=== PATIENT | male | born 1995 | race Caucasian/White ===

== ENCOUNTER 2020-05-30 16:56 | Outpatient (CLI) | payer OTHER | END 2020-05-30 16:57 | disposition critical access hospital (66) | LOC: EMS 16:56 | PROVIDERS: ATTEND Surgery | DX: S68.0 Traumatic metacarpophalangeal amputation of thumb (principal); W45.8XXA Other foreign body or object entering through skin, initial encounter | CPT/HCPCS: A0425; A0429 ==

== ENCOUNTER 2020-05-30 18:15 | Emergency (ER) | payer MEDICAID, OTHER ==
--- NOTE | 2020-05-30 18:22 | ED Physician Documentation ---
PD HPI UPPER EXT INJURY - Stated complaint Stated Complaint: CUT OF TIP OF THUMB - History obtained from History obtained from: Patient (Left-handed gentleman with unknown tetanus status cut the tip off his right left thumb at work just prior to arrival with a knife. He is a cook.) Review of Systems Constitutional: reports: Reviewed and negative Nose: reports: Reviewed and negative Throat: reports: Reviewed and negative Cardiac: reports: Reviewed and negative PD PAST MEDICAL HISTORY - Past Surgical History Past Surgical History: No - Present Medications Home Medications: Ambulatory Orders Medication Instructions Recorded Confirmed Penicillin Vk 500 mg PO Q6H 5 Days tablet 01/21/15 Bacitracin Zinc Oint 1 applic TOP BID #1 tube 05/30/20 - Allergies Allergies/Adverse Reactions: Allergies Allergy/AdvReac Type Severity Reaction Status Date / Time No Known Drug Allergies Allergy Verified 01/21/15 22:32 - Social History Does the pt smoke?: No Smoking Status: Never smoker Does the pt drink ETOH?: No Does the pt have substance abuse?: No - Immunizations Immunizations: TDAP current <10years PD ED PE NORMAL - Vitals Vital signs reviewed: Yes - General General: Alert and oriented X 3, No acute distress - Extremities Extremities: Other (There is a tissue amputation on the tip of the right thumb which does involve the nail. Incompletely evaluated on initial evaluation because of quick clot in place.) - Neuro Neuro: Alert and oriented X 3, Normal speech Results - Vitals Vitals: Vital Signs - 24 hr 05/30/20 05/30/20 18:16 18:26 Temperature 36.7 C Heart Rate 74 74 Respiratory 16 16 Rate Blood Pressure 119/91 H 127/94 H O2 Saturation 100 100 Oxygen O2 Source Room air PD MEDICAL DECISION MAKING - ED course Complexity details: reviewed old records (Chart review shows that he had his las t tetanus shot 5 years ago, he is up-to-date.) ED course: A digital block was done and then it was irrigated and scrubbed. The total defect involves the nail but is less than 1 cm. Was dressed with Surgifoam and tube gauze. Departure - Departure Disposition: 01 Home, Self Care Clinical Impression: Traumatic amputation of fingertip Qualifiers: Encounter type: initial encounter Qualified Code(s): S68.119A - Complete traumatic metacarpophalangeal amputation of unspecified finger, initial encounter Condition: Good Record reviewed to determine appropriate education?: Yes Instructions: ED Laceration Amputation Finger Tip Open Tx Prescriptions: Bacitracin Zinc Oint 1 applic TOP BID #1 tube Comments: Keep the current dressing on until Saturday, at which time you can wash it briefly with soap and water and then use the prescription antibiotic ointment to keep it moist. Apply a Band-Aid and then use the finger splint we gave you to keep it covered and protected. Forms: Activity restrictions
[2020-05-30] MEDS ORDERED: BUFFERED LIDOCAINE 10 ML SYRINGE SUBQ STA (18:32)
[2020-05-30 19:55] VITALS: BP 124/82
== END 2020-05-30 19:54 | disposition home or self-care (01) ==
LOC: EDUNIT# → ED 18:15
DX: S68.521A Partial traumatic transphalangeal amputation of right thumb, initial encounter (principal); W26.0XXA Contact with knife, initial encounter; Y93.G1 Activity, food preparation and clean up; Y92.511 Restaurant or cafe as the place of occurrence of the external cause; Y99.0 Civilian activity done for income or pay
CPT/HCPCS: 1040M; 64450; 99282; 99283